=== PATIENT | male | born 1995 ===

== ENCOUNTER 2017-12-09 13:30 | Emergency (ER) | payer OTHER ==
[2017-12-09 13:40] VITALS: BP 142/85
[2017-12-09] MEDS ORDERED: Azithromycin TAB* 250 MG PO ONE (14:07)
[2017-12-09] MEDS ORDERED: cefTRIAXone VIAL(*) 250 MG VIAL IM ONE (14:07)
[2017-12-09] MEDS ORDERED: Lidocaine 1% MPF* 2 ML VIAL INJ ONE (14:18)
[2017-12-09] MEDS ORDERED: Lidocaine 1% INJ* 10 MG/ML 30 ML SDV INJ ONE (14:20)
--- NOTE | 2017-12-09 15:14 | UC ---
Complaint Male HPI - HPI Summary HPI Summary: Patient is a 22-year-old male presenting to the with concern for STDs. He was recently on a trip to [facility] and [place] and upon returning states that he began to have penile discharge. Denies itching or lesions. History of pharyngeal gonococcus 2 years ago. Denies any fevers, sweats, chills. He would like to be tested for HIV, syphilis, herpes, GC chlamydia. Denies any other history of STDs or known HIV exposure infection. He denies any other urinary symptoms. - History of Current Complaint Chief Complaint: UCGeneralIllness Stated Complaint: STD SCREENING Time Seen by Provider: 12/09/17 13:37 Hx Obtained From: Patient Onset/Duration: Sudden Onset Timing: Constant Severity Initially: Mild Severity Currently: Mild Pain Intensity: 0 Pain Scale Used: 0-10 Numeric Location: None Associated Signs And Symptoms: Positive: Negative - Risk Factors Testicular Torsion: Negative - Allergies/Home Medications Allergies/Adverse Reactions: Allergies Allergy/AdvReac Type Severity Reaction Status Date / Time No Known Allergies Allergy Verified 12/09/17 13:41 Home Medications: Home Medications 24hr Allergey Relief 1 tab PO DAILY 12/09/17 [History] PMH/Surg Hx/FS Hx/Imm Hx Previously Healthy: Yes - Surgical History Surgical History: None Surgery Procedure, Year, and Place: denies - Social History Occupation: Unemployed Lives: With Family Alcohol Use: Weekly Substance Use Type: Marijuana Smoking Status (MU): Never Smoked Tobacco - Immunization History Most Recent Tetanus Shot: UTD Review of Systems Constitutional: Negative Skin: Negative ENT: Negative Respiratory: Negative Cardiovascular: Negative Genitourinary: Vaginal/Penile Discharge Motor: Negative Neurovascular: Negative Neurological: Negative Is Patient Immunocompromised?: No All Other Systems Reviewed And Are Negative: Yes Physical Exam Triage Information Reviewed: Yes Appearance: Well-Appearing, Well-Nourished Vital Signs: Initial Vital Signs Temp 99.4 F 12/09/17 13:35 Pulse 70 12/09/17 13:35 Resp 18 12/09/17 13:35 BP 142/85 12/09/17 13:35 Pulse Ox 100 12/09/17 13:35 Vital Signs Reviewed: Yes Eye Exam: Normal Eyes: Positive: Conjunctiva Clear Neck exam: Normal Neck: Positive: Supple, No Lymphadenopathy Respiratory Exam: Normal Respiratory: Positive: Chest non-tender Cardiovascular Exam: Normal Cardiovascular: Positive: RRR Musculoskeletal Exam: Normal Musculoskeletal: Positive: Strength Intact Neurological Exam: Normal Neurological: Positive: Alert Psychological: Positive: Normal Response To Family Skin Exam: Normal Complaint Male Course/Dx - Course Course Of Treatment: During the course treatment, the patient's evaluated for concern over STDs. HIV, herpes, syphilis, GC chlamydia obtained. Treated for GC chlamydia with ceftriaxone and azithromycin. He is okay with discharge at this time and will be called for any positive results. - Differential Dx/Diagnosis Differential Diagnosis/HQI/PQRI: Other - STD exposure Provider Diagnoses: STD exposure; penile discharge Discharge - Sign-Out/Discharge Documenting (check all that apply): Discharge/Admit/Transfer - Discharge Plan Condition: Stable Disposition: HOME Patient Education Materials: Sexually Transmitted Diseases (ED) Referrals: No Primary Care Phys,NOPCP [Primary Care Provider] - Additional Instructions: Please follow up with PCP Return to the for any worsening or changing symptoms - Billing Disposition and Condition Condition: STABLE Disposition: HOME
--- NOTE | 2017-12-10 14:19 | UC ---
- Progress Note Progress Note: + gonorrhea Pt treated with ceftriaxone and zithromax no change in treatment Please update pt with result Discharge - Sign-Out/Discharge Documenting (check all that apply): Post-Discharge Follow Up - Discharge Plan Condition: Stable Disposition: HOME Patient Education Materials: Sexually Transmitted Diseases (ED) Referrals: No Primary Care Phys,NOPCP [Primary Care Provider] - Additional Instructions: Please follow up with PCP Return to the UC for any worsening or changing symptoms - Billing Disposition and Condition Condition: STABLE Disposition: HOME
[2017-12-11 13:09] LABS: Herpes Simplex Virus II IgG AB Negative (Negative)
--- NOTE | 2017-12-11 16:17 | PN ---
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 can call patient to make aware but this is the virus that causes cold sores not genital lesions. HSV II neg.
== END 2017-12-09 14:30 | disposition home or self-care (01) ==
LOC: UCEAST 13:30
DX: R36.9 Urethral discharge, unspecified (principal); Z20.2 Contact with and (suspected) exposure to infections with a predominantly sexual mode of transmission; A54.9 Gonococcal infection, unspecified; Z11.4 Encounter for screening for human immunodeficiency virus [HIV]
CPT/HCPCS: 36415; 86592; 86695; 86696; 86703; 87491; 87591; 99201; A9270-GY; G0463; J0696

== ENCOUNTER 2017-12-16 17:28 | Emergency (ER) | payer OTHER ==
[2017-12-16 17:41] VITALS: BP 135/85
[2017-12-16] MEDS ORDERED: Azithromycin TAB* 250 MG PO ONE (18:20)
[2017-12-16] MEDS ORDERED: cefTRIAXone VIAL(*) 250 MG VIAL IM ONE (18:20)
[2017-12-16] MEDS ORDERED: Lidocaine 1% MPF* 2 ML VIAL ONE (18:25)
[2017-12-16] MEDS ORDERED: Lidocaine 1% MPF* 2 ML VIAL INJ ONE (18:27)
--- NOTE | 2017-12-16 18:54 | UC ---
Complaint Male HPI - HPI Summary HPI Summary: Complains of penile discharge and pain with urination times one day. States tested positive for gonorrhea one week ago and was treated. Had protected sex with partner 2 days later. Partner and tested positive for gonorrhea but had not been treated yet. Denies testicular pain or swelling, fever, N/V, abdominal pain, incontinence, urinary retention. - History of Current Complaint Chief Complaint: UCGU Stated Complaint: STD TESTING Time Seen by Provider: 12/16/17 17:54 Hx Obtained From: Patient Severity Currently: Mild Pain Intensity: 1 - Allergies/Home Medications Allergies/Adverse Reactions: Allergies Allergy/AdvReac Type Severity Reaction Status Date / Time No Known Allergies Allergy Verified 12/16/17 17:41 PMH/Surg Hx/FS Hx/Imm Hx - Surgical History Surgical History: None Surgery Procedure, Year, and Place: denies - Social History Alcohol Use: Weekly Substance Use Type: Marijuana Substance Use Comment - Amount & Last Used: occasional Smoking Status (MU): Never Smoked Tobacco - Immunization History Most Recent Tetanus Shot: UTD Review of Systems Constitutional: Negative Skin: Negative Eyes: Negative ENT: Negative Respiratory: Negative Cardiovascular: Negative Gastrointestinal: Negative Genitourinary: Vaginal/Penile Discharge Motor: Negative Neurovascular: Negative Musculoskeletal: Negative Neurological: Negative Psychological: Negative Is Patient Immunocompromised?: No All Other Systems Reviewed And Are Negative: Yes Physical Exam Triage Information Reviewed: Yes Appearance: Well-Appearing Vital Signs: Initial Vital Signs Temp 98.6 F 12/16/17 17:35 Pulse 62 12/16/17 17:35 Resp 16 12/16/17 17:35 BP 135/85 12/16/17 17:35 Pulse Ox 98 12/16/17 17:35 Vital Signs Reviewed: Yes Eye Exam: Normal Neck exam: Normal Respiratory Exam: Normal Cardiovascular Exam: Normal Abdominal Exam: Normal Musculoskeletal Exam: Normal Neurological Exam: Normal Psychological Exam: Normal Skin Exam: Normal Complaint Male Course/Dx - Course Course Of Treatment: Genital exam deferred due to history. Patient denies any testicular pain or swelling. - Differential Dx/Diagnosis Provider Diagnoses: Penile discharge and pain Discharge - Sign-Out/Discharge Documenting (check all that apply): Discharge/Admit/Transfer - Discharge Plan Condition: Stable Disposition: HOME Patient Education Materials: Chlamydia (ED), Gonorrhea (ED) Referrals: No Primary Care Phys,NOPCP [Primary Care Provider] - Additional Instructions: Follow-up with primary care. Have your partner tested and treated as well. - Billing Disposition and Condition Condition: STABLE Disposition: HOME
== END 2017-12-16 19:10 | disposition home or self-care (01) ==
LOC: UCEAST 17:28
DX: R36.9 Urethral discharge, unspecified (principal); N48.89 Other specified disorders of penis
CPT/HCPCS: 81003; 87086; 87491; 87591; 99212; A9270-GY; G0463; J0696